=== PATIENT | female | born 1985 | race Caucasian/White ===

== ENCOUNTER 2016-10-13 11:14 | Emergency (ER) | payer OTHER ==
[~2016-10-13] VITALS: Ht 160 cm; Wt 76.7 kg
[~2016-10-13 11:14] MED LIST: AMOXICILLIN500 M1 PO; CLEOCIN300 MG PO; ENDOCET 5-3251 EACH PO; IBUPROFEN800 MG PO; PERCOCET 5/31 TABLET PO; PRENATAL TABLE1 EAC3 PO
[2016-10-13 16:07] LABS: EOSINOPHIL (%) 1.7 % (0-5); EOSINOPHIL COUNT 0.3 K/uL (0-0.3); HEMATOCRIT 32.1 % (36.0-46.0); IMMATURE GRANULOCYTE (%) 0.4 % (0.0-0.7); IMMATURE GRANULOCYTE COUNT 0.7 K/uL; LYMPHOCYTE COUNT 2.8 K/uL (1.0-2.8); MCH 29.4 PG (29.0-34.0); MCV 86.5 FL (83-99); MEAN PLAT.VOLUME 10.9 uM^3 (9.5-12.4); MONOCYTE (%) 6.3 % (3-12); NEUTROPHIL (%) 74.8 % (45-76); NEUTROPHIL COUNT 12.4 K/uL (1.8-6.4); PLATELET COUNT 336 K/uL (156-360); RBC DIS.WIDTH-CV 14.4 % (11.8-14.6); RBC DIS.WIDTH-SD 43.7 % (39-53); RED BLOOD COUNT 3.71 M/uL (3.80-5.20); WHITE BLOOD COUNT 16.6 K/uL (4.1-10.2)
[2016-10-13 16:19] LABS: CHLORIDE 105 mEq/L (99-109); POTASSIUM 3.6 mEq/L (3.7-5.4); SODIUM 135 mEq/L (136-147)
[2016-10-13 16:20] LABS: GLUCOSE 72 mg/dL (70-99)
[2016-10-13 16:22] LABS: ANION GAP 10 MEQ/L (2-14)
[2016-10-13 16:24] LABS: GFR ESTIMATE (CALCULATED) > 59 mL/min/
[2016-10-13 16:25] LABS: UREA NITROGEN (BUN) 5 mg/dL (9-23)
[2016-10-13] MEDS ORDERED: CLEOCIN300 MG PO (16:29)
[2016-10-13 17:53] VITALS: BP 102/59
== END 2016-10-13 17:55 | disposition home or self-care (01) ==
LOC: EME 11:14 → EXP 11:14
PROVIDERS: Physician Assistant
DX: K11.5 Sialolithiasis (principal); Z33.1 Pregnant state, incidental; Z3A.35 35 weeks gestation of pregnancy; Z87.891 Personal history of nicotine dependence
CPT/HCPCS: 70487; 80048; 85025; 99281; 99284; J7120

== ENCOUNTER 2016-11-18 06:46 | Inpatient (IN) | payer OTHER ==
[~2016-11-18] VITALS: Ht 160 cm; Wt 81.2 kg
[2016-11-18] VITALS (7 sets, daily range): BP systolic 100–116; BP diastolic 58–81
[~2016-11-18 06:46] MED LIST changes: +IRON325 M1 PO; +ZOLOFT50 MG PO
[2016-11-18 07:53] LABS: EOSINOPHIL COUNT 0.3 K/uL (0-0.3); HEMATOCRIT 31.5 % (36.0-46.0); IMMATURE GRANULOCYTE (%) 0.9 % (0.0-0.7); IMMATURE GRANULOCYTE COUNT 0.1 K/uL; INSTRUMENT ABS NEUTROPHIL CT 9.9 K/uL; LYMPHOCYTE COUNT 2.6 K/uL (1.0-2.8); MCH 28.7 PG (29.0-34.0); MEAN PLAT.VOLUME 11.1 uM^3 (9.5-12.4); NEUTROPHIL (%) 71.4 % (45-76); NEUTROPHIL COUNT 9.9 K/uL (1.8-6.4); PLATELET COUNT 340 K/uL (156-360); RBC DIS.WIDTH-CV 14.8 % (11.8-14.6); RBC DIS.WIDTH-SD 47.2 % (39-53); RED BLOOD COUNT 3.62 M/uL (3.80-5.20); WHITE BLOOD COUNT 13.9 K/uL (4.1-10.2)
[2016-11-18 09:06] LABS: AMPHETAMINES QUANT VALUE 0 NG/ML; BARBITUATES QUANT VALUE 0 NG/ML; BENZODIAZEPINES QUANT VALUE 0 NG/ML; BENZODIAZEPINES, URINE SCREEN Negative (200 ng/mL); MARIJUANA QUANT VALUE 0 NG/ML; OPIATES QUANTITATIVE VALUE 0 NG/ML; PHENCYCLIDINE QUANT VALUE 0 NG/ML
[2016-11-18] MEDS ORDERED: ENDOCET 5-3251 EACH PO (09:45)
[2016-11-18] MEDS ORDERED: IBUPROFEN800 MG PO (09:45)
[2016-11-19 03:01] VITALS: BP 110/58
[2016-11-19 04:57] LABS: EOSINOPHIL (%) 2.4 % (0-5); EOSINOPHIL COUNT 0.3 K/uL (0-0.3); IMMATURE GRANULOCYTE (%) 0.5 % (0.0-0.7); IMMATURE GRANULOCYTE COUNT 0.1 K/uL; INSTRUMENT ABS NEUTROPHIL CT 7.3 K/uL; LYMPHOCYTE COUNT 2.4 K/uL (1.0-2.8); MCH 28.2 PG (29.0-34.0); MCHC 32.2 G/DL (30.0-36.0); MCV 87.7 FL (83-99); MEAN PLAT.VOLUME 11.2 uM^3 (9.5-12.4); MONOCYTE (%) 9.3 % (3-12); NEUTROPHIL (%) 65.5 % (45-76); NEUTROPHIL COUNT 7.3 K/uL (1.8-6.4); PLATELET COUNT 377 K/uL (156-360); RBC DIS.WIDTH-CV 14.7 % (11.8-14.6); RBC DIS.WIDTH-SD 47.4 % (39-53); RED BLOOD COUNT 3.65 M/uL (3.80-5.20); WHITE BLOOD COUNT 11.2 K/uL (4.1-10.2)
[2016-11-19 07:07] VITALS: BP 109/56
[2016-11-19 10:35] VITALS: BP 112/66
[2016-11-19 15:02] VITALS: BP 127/88
[2016-11-19 19:09] VITALS: BP 125/77
[2016-11-19 23:54] VITALS: BP 116/65
[2016-11-20 03:26] VITALS: BP 119/69
[2016-11-20 06:55] VITALS: BP 111/66
[2016-11-20] MEDS ORDERED: OXYCODONE-APAP1 EACH PO (09:34)
[2016-11-20 11:11] VITALS: BP 119/73
== END 2016-11-20 13:52 | disposition home or self-care (01) | DRG 765 ==
LOC: 2SOUTH → 2WEST 06:46 → 2SOUTH 09:42 → 2WEST 11-20 13:52
PROVIDERS: Obstetrics & Gynecology
DX: O34.211 Maternal care for low transverse scar from previous cesarean delivery (principal); F33.9 Major depressive disorder, recurrent, unspecified; Z37.0 Single live birth; Z3A.39 39 weeks gestation of pregnancy; F41.9 Anxiety disorder, unspecified; Z30.2 Encounter for sterilization; D50.8 Other iron deficiency anemias; O99.344 Other mental disorders complicating childbirth; F12.90 Cannabis use, unspecified, uncomplicated; O99.013 Anemia complicating pregnancy, third trimester; O99.62 Diseases of the digestive system complicating childbirth; K21.9 Gastro-esophageal reflux disease without esophagitis; Z87.891 Personal history of nicotine dependence; Z87.442 Personal history of urinary calculi
CPT/HCPCS: 36415; 80306 90; 85025; 86850; 86900; 86901; 88302; J0690; J1170; J2274; J2405; J7120

== ENCOUNTER 2017-05-09 14:11 | Emergency (ER) | payer OTHER ==
[~2017-05-09] VITALS: Ht 160 cm; Wt 72.8 kg
[~2017-05-09 14:11] MED LIST changes: +OXYCODONE-APAP1 EACH PO
[2017-05-09] MEDS ORDERED: ULTRAM50 MG PO (15:35)
[2017-05-09] MEDS ORDERED: MOTRIN800 MG PO (15:35)
[2017-05-09] MEDS ORDERED: PEN-VEE K,VEET500 MG PO (15:35)
[2017-05-09 15:43] VITALS: BP 177/99
== END 2017-05-09 15:44 | disposition home or self-care (01) ==
LOC: EME 14:11
PROC: 3E0T3BZ Introduction of Anesthetic Agent into Peripheral Nerves and Plexi, Percutaneous Approach (ICD-10-PCS; principal; 2017-05-09)
DX: K02.9 Dental caries, unspecified (principal); K04.7 Periapical abscess without sinus; F17.200 Nicotine dependence, unspecified, uncomplicated
CPT/HCPCS: 99281; 99284